=== PATIENT | female | born 1975 | race Caucasian/White ===

== ENCOUNTER 2021-10-28 03:46 | Emergency (ER) | payer OTHER ==
[2021-10-28 05:07] LABS: BUN/CREATININE RATIO 15 (0-10)
[2021-10-28 05:15] LABS: HEMOGLOBIN 7.5 gm/dl (12.3-15.3); RED BLOOD COUNT 4.38 M/UL (4.00-5.10); WHITE BLOOD COUNT 5.1 K/UL (4.5-11.0)
== END 2021-10-28 10:00 | disposition home or self-care (01) ==
LOC: ER1 03:46
PROVIDERS: Physician Assistant
DX: R07.9 Chest pain, unspecified (principal); D64.9 Anemia, unspecified; R06.02 Shortness of breath; F17.210 Nicotine dependence, cigarettes, uncomplicated; Z20.822 Contact with and (suspected) exposure to COVID-19; F17.200 Nicotine dependence, unspecified, uncomplicated
CPT/HCPCS: 0240U; 71045; 80053; 82550; 82553; 84439; 84443; 84484; 85025; 85379; 87081; 87880; 93005; 99285; Q9967